=== PATIENT | male | born 2000 ===

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

== ENCOUNTER → 2018-01-31 | Outpatient (REF) | payer BC | LOC: M LAB REF 19:16 | DX: J02.9 Acute pharyngitis, unspecified (principal) | CPT/HCPCS: 87081 ==